=== PATIENT | male | born 1960 | race Caucasian/White ===

== ENCOUNTER 2020-12-28 16:48 | Inpatient (IN) ==
[2020-12-28] MEDS ORDERED: SODIUM CHLORIDE 0.9% 500 ML IV STA (17:05)
--- NOTE | 2020-12-28 17:13 | Emergency Department Note ---
History of Present Illness General Chief complaint: Rectal Bleed Stated complaint: RECTAL BLEED Time Seen by Provider: 12/28/20 16:55 Source: patient Mode of arrival: ambulatory Limitations: no limitations History of Present Illness Provider complaint: GI bleed 10-year-old male who presents to the ED with a chief complaint of rectal bleeding. He had one episode of rectal bleeding that was significant just prior to arrival. He states that he felt like he had to move his bowels and a significant amount of blood came out. The , who reports that she is a nurse, states that it was bright red in color. The patient has a history of rectal cancer that was diagnosed January 2020. He is currently undergoing chemot herapy. His last episode of chemotherapy was last week. Following chemotherapy he had diarrhea for 2 days that resolved. He then states that he did not have a bowel movement since that time. On the way here, his states that he reported some dizziness and lightheadedness. He is followed by Dr. Frazier. His case is nonsurgical, per the patient. The reports metastatic lesions to the lung that are stable. Home Medications Medication Instructions Recorded Confirmed Type tramadol 25 mg PO HS PRN 03/03/20 12/28/20 History acetaminophen [Tylenol] 325 mg PO QID PRN 03/04/20 12/28/20 History fentanyl 12 mcg/hr transdermal 1 patch TD Q72H 03/25/20 12/28/20 History patch gabapentin 300 mg PO TID 12/28/20 12/28/20 History lisinopril 10 mg PO DAILY 12/28/20 12/28/20 History Allergies Allergy/AdvReac Type Severity Reaction Status Date / Time No Known Allergies Allergy Verified 12/28/20 18:40 Past Med/Surg History Medical History (Updated 12/28/20 @ 19:44 by Josué Hunt DO) Adenomatous polyps Dermatitis History of colon cancer diagnosed 01/2020--reason for port insertion Hypertension Tubulovillous adenoma Surgical History History of colonoscopy 2016 - Tubulovillous Adenoma removed 2018 - Tubulovillous Adenoma removed 02/02/20 - Colorectal Adenocarcinoma History of inguinal hernia repair 04/07/2016 right side History of rectal surgery 05/01/2017 - Rectal Tumor Excision Transanal Approach History of wisdom tooth extraction Port-A-Cath in place (03/04/20) Insertion of Mediport Left Subclavian Vein Dr. Chavarria 03/04/20 Family History Mother Heart disease Hypertension Father Heart disease Hemochromatosis Hypertension Brother No problems noted. Sister History of rectal polyps Son No problems noted. Daughter No problems noted. 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 [employer] Feels Safe at Home: Yes Childhood Exposure to Second-Hand Smoke: Yes caffeine: Yes (coffee one cup per day) during the past year weight has: decreased > 10 lbs Dental Care, Regularly: Yes Physical Activity Frequency: 1-2 Times per Week Seatbelt Use: always Sunscreen Use: Yes Assistive Devices: None Review of Systems A total of 10 systems reviewed and were otherwise negative Physical Exam Vital Signs Vital Signs - 24 hr 12/28/20 16:54 12/28/20 17:00 12/28/20 17:18 Temperature 36.8 C Temperature Source Oral Pulse Rate - Lying Pulse Rate - Sitting Pulse Rate - Standing Pulse Rate 109 H 99 H 104 H Pulse Rate from SpO2 Sensor 108 H 99 H Respiratory Rate 33 H 24 16 Respiratory Effort / Characteristics Non-Labored Spontaneous Respiratory Depth Normal Respiratory Pattern Regular Blood Pressure - Lying Blood Pressure - Sitting Blood Pressure- Standing Blood Pressure 165/96 H 149/95 H 149/95 H Blood Pressure Mean 119 113 113 Pulse Oximetry 97 97 99 Oxygen Delivery Method Room Air Sepsis Recent Fever Within 48 Hours No Sepsis New/Unexplained Change in Mental Status No Sepsis Action Taken by Nursing No Action Required 12/28/20 17:30 12/28/20 18:00 12/28/20 18:37 Temperature Temperature Source Pulse Rate - Lying 98 H Pulse Rate - Sitting 103 H Pulse Rate - Standing 98 H Pulse Rate 97 H 101 H Pulse Rate from SpO2 Sensor 100 H 100 H Respiratory Rate 27 H 16 Respiratory Effort / Characteristics Respiratory Depth Respiratory Pattern Blood Pressure - Lying 130/79 Blood Pressure - Sitting 148/88 H Blood Pressure- Standing 141/86 H Blood Pressure 125/82 142/80 H Blood Pressure Mean 96 100 Pulse Oximetry 98 96 Oxygen Delivery Method Sepsis Recent Fever Within 48 Hours Sepsis New/Unexplained Change in Mental Status Sepsis Action Taken by Nursing CONSTITUTIONAL/VITAL SIGNS: Reviewed / noted above. GENERAL: Non-toxic in appearance. INTEGUMENTARY: Warm, dry, and [place]. HEAD: Normocephalic. EYES: without scleral icterus or trauma. ENT/OROPHARYNX: clear and moist. LYMPHADENOPATHY/NECK: Is supple without lymphadenopathy or meningismus. RESPIRATORY: Lungs clear and equal. CARDIOVASCULAR: Regular rate and rhythm. GI/ABDOMEN: Soft and nontender. No organomegaly or pulsatile mass. No rebound or guarding. Normal bowel sounds. There is no active bleeding from the exterior portion of the rectum but there is gross dried blood in that region no obvious rectal masses on external exam. No internal or digital exam was performed. EXTREMITIES: Warm and well perfused. BACK: No CVA tenderness. NEUROLOGICAL: Intact without focal deficits. PSYCHIATRIC: normal affect. MUSCULOSKELETAL: Normally developed with good muscle tone. TRIAGE NURSING DOCUMENTATION REVIEWED. Course Administered Medications Discontinued Medications Sodium Chloride (Nss) 500 mls @ 999 mls/hr IV .Q31M STA Stop: 12/28/20 17:35 Last Infusion: 12/28/20 18:44 Dose: 0 mls/hr Documented by: [id number] Admin: 12/28/20 17:13 Dose: 999 mls/hr Documented by: [id number] Ioversol (Ioversol 100ml) 95 ml IV ONCE ONE Stop: 12/28/20 17:52 Last Admin: 12/28/20 17:52 Dose: 95 ml Documented by: [id number] Medical Decision Making Differential Diagnosis Differential includes anemia, arterial versus venous bleeding, cancer, hypot ension Medical Records Attestation: I reviewed the patient's medical records. Home Medications Current Medication List: was personally reviewed by me Laboratory Data Attestation: I reviewed the patient's lab results. Result diagrams: 12/28/20 17:11 12/28/20 17:11 Lab Results 12/28/20 12/28/20 12/28/20 Range/Units 17:11 17:11 17:11 WBC 2.77 L (4.8-10.8) K/uL RBC 3.65 L (4.7-6.1) M/uL Hgb 11.8 L (14.0-18.0) g/dL Hct 34.0 L (42-52) % MCV 93.2 (80-100) fL MCH 32.3 (25-34) pg MCHC 34.7 (32-36) g/dL RDW Std Deviation 75.6 H (36.4-46.3) fL RDW Coeff of Neema 21.9 H (11.5-14.5) % Plt Count 156 (130-400) K/uL MPV 8.5 (7.4-10.4) fL PT 10.9 (9.0-12.0) Seconds INR 1.1 (0.9-1.1) APTT 27.3 (21.0-31.0) Seconds PTT Ratio 1.0 Sodium (136-145) mmol/L Potassium (3.5-5.1) mmol/L Chloride (98-107) mmol/L Carbon Dioxide (21-32) mmol/L Anion Gap (3-11) BUN (7-18) mg/dl Creatinine (0.6-1.4) mg/dl Est Cr Clr Drug Dosing ml/min Est GFR ( Amer) Est GFR (Non-Af Amer) BUN/Creatinine Ratio (10-20) Glucose (70-99) mg/dl Calcium (8.5-10.1) mg/dl Total Bilirubin (0.2-1) mg/dl AST (15-37) U/L ALT (12-78) U/L Alkaline Phosphatase (45-117) U/L Total Protein (6.4-8.2) gm/dl Albumin (3.4-5.0) gm/dl Globulin (2.5-4.0) gm/dl Albumin/Globulin Ratio (0.9-2) COVID-19 Eval Order SARS-CoV-2 (PCR) (Negative) Influenza Type A (PCR) (Neg) Influenza Type B (PCR) (Neg) RSV (RT-PCR) (Neg) Blood Type B Negative Antibody Screen NEGATIVE 12/28/20 12/28/20 12/28/20 Range/Units 17:11 19:05 19:05 WBC (4.8-10.8) K/uL RBC (4.7-6.1) M/uL Hgb (14.0-18.0) g/dL Hct (42-52) % MCV (80-100) fL MCH (25-34) pg MCHC (32-36) g/dL RDW Std Deviation (36.4-46.3) fL RDW Coeff of Neema (11.5-14.5) % Plt Count (130-400) K/uL MPV (7.4-10.4) fL PT (9.0-12.0) Seconds INR (0.9-1.1) APTT (21.0-31.0) Seconds PTT Ratio Sodium 138 (136-145) mmol/L Potassium 3.8 (3.5-5.1) mmol/L Chloride 106 (98-107) mmol/L Carbon Dioxide 24 (21-32) mmol/L Anion Gap 8.0 (3-11) BUN 19 H (7-18) mg/dl Creatinine 0.61 (0.6-1.4) mg/dl Est Cr Clr Drug Dosing 117.7 ml/min Est GFR ( Amer) 126.7 Est GFR (Non-Af Amer) 109.3 BUN/Creatinine Ratio 30.3 H (10-20) Glucose 131 H (70-99) mg/dl Calcium 9.1 (8.5-10.1) mg/dl Total Bilirubin 0.5 (0.2-1) mg/dl AST 17 (15-37) U/L ALT 29 (12-78) U/L Alkaline Phosphatase 74 (45-117) U/L Total Protein 7.0 (6.4-8.2) gm/dl Albumin 3.2 L (3.4-5.0) gm/dl Globulin 3.8 (2.5-4.0) gm/dl Albumin/Globulin Ratio 0.8 L (0.9-2) COVID-19 Eval Order CovFluRsv at [facility] SARS-CoV-2 (PCR) NEGATIVE (Negative) Influenza Type A (PCR) Negative (Neg) Influenza Type B (PCR) Negative (Neg) RSV (RT-PCR) Negative (Neg) Blood Type Antibody Screen Imaging Data Radiologist's Impression: Abdomen/Pelvis CT 12/28/20 17:[address] WITH IV CONTRAST CT DOSE: 506.99 mGy.cm HISTORY: Acute rectal bleeding. History of rectal carcinoma rectal bleed, recta l cancer TECHNIQUE: Multiaxial CT images of the abdomen and pelvis were performed following the IV administration of 95 cc of Optiray 320, A dose lowering technique was utilized adhering to the principles of ALARA. COMPARISON STUDY: CT abdomen and pelvis 11/23/2020 FINDINGS: Partially imaged catheter within the right atrium. Imaged inferior cardiac chambers are unremarkable. 8 mm solid nodule of the basal right lower lobe on image 67 is unchanged in size. Mild bibasilar atelectasis. There is no pneumatosis or pneumoperitoneum. Mild splenomegaly, 13.5 cm. Pancreas, adrenal glands, gallbladder and liver appear unremarkable. Probable cyst of the interpolar right kidney, 1.3 cm. No hydronephrosis. Urinary bladder is distended measuring up to 16.2 cm. Mild prostamegaly. No aortic aneurysm. Prior right inguinal hernia repair. No adenopathy. Mild wall thickening of the distal esophagus. Duodenal diverticulum. No bowel obstruction. Moderate fecal retention. The appendix is not identified. Circumferential wall thickening of the rectum with progressive perirectal stranding. There is discontinuity involving the 4-6:00 positions of the mid aspect of the posterior rectal wall with extraluminal air and debris noted extending into the perirectal tissues abutting the adjacent pelvic floor musculature and left seminal vesicle overall measuring approximately 3.9 cm in greatest dimension. Tiny adjacent perirectal lymph nodes. No drainable fluid collection. Unremarkable soft tissues. There is no acute fracture. No new suspicious bone lesion. IMPRESSION: 1. Pathologic wall thickening of the rectum redemonstrated compatible with the patient's known rectal carcinoma. There is discontinuity involving the left posterolateral rectal wall with air and debris within the adjacent perirectal tissues suggestive of contained perforation with collection/sinus tract abutting the adjacent left pelvic floor. 2. No bowel obstruction or drainable fluid collection. 3. Moderate fecal retention. 4. Unchanged 8 mm right lower lobe pulmonary nodule. 5. Additional findings as above. ACT 112: Negative or not required by law. The above report was generated using voice recognition software. It may contain grammatical, syntax or spelling errors. Electronically signed by: Emile Garber M.D. 12/28/2020 6:16 PM MDM Narrative This is a 60-year-old male who presents to the ED with a chief complaint of sudden onset of rectal bleeding that just happened before he came in. He reports a significant amount of blood loss. He was feeling a little lightheaded. His vital signs here are stable. His exam does not reveal any external bleeding. A CT scan of the abdomen pelvis was performed. This reveals findings suggestive of a contained rectal perforation. The patient's white blood cell count is 2.77. His hemoglobin is 11.8. This is stable compared to his hemoglobin on the second. The chemistry panel did not show any significant abnormalities. I did speak with Dr. Dueñas, the colorectal surgeon that has seen the patient in the past at [facility] in [place]. He does not feel that the patient requires surgery at this time. He states that the p atient should be given IV antibiotics and monitored. He does not feel that this is an acute perforation. He did recommend monitoring the patient in the hospital for his blood counts and his rectal bleeding. Should he develop any findings to suggest infection, the patient can be transferred otherwise he felt the patient could be discharged on oral antibiotics, such as Augmentin, and he would follow-up with the patient next week. I did talk to Dr. Shea about the patient as well. The patient will be seen by the hospitalist for further evaluation and care. He was given IV Zosyn here which was recommended by the colorectal surgeon from [facility]. He did have less than a teaspoon of marj tional rectal bleeding during his ED stay. Impression & Plan RB (rectal bleeding), Rectal adenocarcinoma, Perforation of rectum Discharge Plan Visit Data Chief Complaint: Rectal Bleed Stated Complaint: RECTAL BLEED ED Provider: Josué Hunt Discharge Problem: RB (rectal bleeding), Rectal adenocarcinoma, Perforation of rectum Patient Disposition: Being Evaluated by Hospitalist Forms Stand Alone Forms: My [employer] Prescriptions Prescriptions: No Action fentanyl 12 mcg/hr patch 72 hour 1 patch TD Q72H RF: 0 tramadol 50 mg Tablet 25 mg PO HS PRN (Reason: Pain) RF: 0 acetaminophen [Tylenol] 325 mg Capsule 325 mg PO QID PRN (Reason: Pain) RF: 0 lisinopril 20 mg Tablet 10 mg PO DAILY RF: 0 gabapentin 300 mg capsule 300 mg PO TID RF: 0 Referrals Referrals: Emelina Mercado PA-C [Primary Care Provider] -
[2020-12-28 17:19] LABS: Hemoglobin 11.8 g/dL (14.0-18.0); Mean Corpuscular Hemoglobin 32.3 pg (25-34); Mean Corpuscular Hgb Conc 34.7 g/dL (32-36); Mean Corpuscular Volume 93.2 fL (80-100); Mean Platelet Volume 8.5 fL (7.4-10.4); Platelet Count 156 K/uL (130-400); RDW Coefficient of Variation 21.9 % (11.5-14.5); RDW Standard Deviation 75.6 fL (36.4-46.3); Red Blood Count 3.65 M/uL (4.7-6.1); White Blood Count 2.77 K/uL (4.8-10.8)
[2020-12-28 17:35] LABS: Albumin Level 3.2 gm/dl (3.4-5.0); BUN Creatinine Ratio 30.3 (10-20); Calcium 9.1 mg/dl (8.5-10.1); Creatinine Clr Calc Pharmacy 117.7 ml/min; Est GFR (African American) 126.7; Est GFR (Non-African American) 109.3; Potassium 3.8 mmol/L (3.5-5.1)
[2020-12-28 17:38] LABS: Albumin Globulin Ratio 0.8 (0.9-2); Bilirubin,Total 0.5 mg/dl (0.2-1); Globulin 3.8 gm/dl (2.5-4.0)
[2020-12-28] MEDS ORDERED: OPTIRAY 320 100ml IV ONE (17:51)
[2020-12-28 17:52] LABS: INR 1.1 (0.9-1.1); Partial Thromboplastin Time 27.3 Seconds (21.0-31.0); Prothrombin Time 10.9 Seconds (9.0-12.0)
--- NOTE | 2020-12-28 18:17 | CT Scan Report ---
ABDOMEN AND PELVIS CT WITH IV CONTRAST CT DOSE: 506.99 mGy.cm HISTORY: Acute rectal bleeding. History of rectal carcinoma rectal bleed, rectal cancer TECHNIQUE: Multiaxial CT images of the abdomen and pelvis were performed following the IV administrat ion of 95 cc of Optiray 320, A dose lowering technique was utilized adhering to the principles of AL DAV. COMPARISON STUDY: CT abdomen and pelvis 11/23/2020 FINDINGS: Partially imaged catheter within the right atrium. Imaged inferior cardiac chambers are unremarkable. 8 mm solid nodule of the basal right lower lobe on image 67 is unchanged in size. Mild bibasilar ate lectasis. There is no pneumatosis or pneumoperitoneum. Mild splenomegaly, 13.5 cm. Pancreas, adrenal glands, gallbladder and liver appear unremarkable. Prob able cyst of the interpolar right kidney, 1.3 cm. No hydronephrosis. Urinary bladder is distended javier suring up to 16.2 cm. Mild prostamegaly. No aortic aneurysm. Prior right inguinal hernia repair. No a denopathy. Mild wall thickening of the distal esophagus. Duodenal diverticulum. No bowel obstruction. Moderate f ecal retention. The appendix is not identified. Circumferential wall thickening of the rectum with pr ogressive perirectal stranding. There is discontinuity involving the 4-6:00 positions of the mid aspe ct of the posterior rectal wall with extraluminal air and debris noted extending into the perirectal tissues abutting the adjacent pelvic floor musculature and left seminal vesicle overall measuring mary roximately 3.9 cm in greatest dimension. Tiny adjacent perirectal lymph nodes. No drainable fluid col lection. Unremarkable soft tissues. There is no acute fracture. No new suspicious bone lesion. IMPRESSION: 1. Pathologic wall thickening of the rectum redemonstrated compatible with the patient's known rectal carcinoma. There is discontinuity involving the left posterolateral rectal wall with air and debris within the adjacent perirectal tissues suggestive of contained perforation with collection/sinus trac t abutting the adjacent left pelvic floor. 2. No bowel obstruction or drainable fluid collection. 3. Moderate fecal retention. 4. Unchanged 8 mm right lower lobe pulmonary nodule. 5. Additional findings as above. ACT 112: Negative or not required by law. The above report was generated using voice recognition software. It may contain grammatical, syntax o r spelling errors. Electronically signed by: Emile Garber M.D. 12/28/2020 6:16 PM
[2020-12-28] MEDS ORDERED: PIPERACILL/TAZOBAC CONSULT ACTIVE PRN ×2 (19:37→22:07)
[2020-12-28] MEDS ORDERED: PIPERACILLIN/TAZOBACTAM 4.5 GM/120 ML BAG IV ONE (19:37)
[2020-12-28 20:06] LABS: Influenza A virus by PCR Negative (Neg); Influenza B virus by PCR Negative (Neg); RSV by PCR Negative (Neg); SARS CoV2 RNA(COVID-19) InHosp NEGATIVE (Negative)
--- NOTE | 2020-12-28 20:30 | History & Physical Report ---
Date of Service December 28, 2020 Assessment & Plan (1) RB (rectal bleeding): 60yo male with history of rectal carcinoma with metastases to lungs presenting with rectal bleed. He is hemodynamically stable, Hgb=11.8 which is similar to prior values. No additional bleeding. -Admit to medical -Continue to monitor CBC -Monitor for additional bleeding -Consider GI consultation Present on Admission?: Yes (2) Perforation of rectum: Patient with history of rectal carcinoma. CT imaging revealed contained perforation. He follows with Colorectal surgery at [facility] as well as Medical Oncology - Dr. Bustamante and Dr. Mims. ER physician discussed CT findings with both Dr. Mims and Dr. Frazier. 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 -Continue Tramadol -Consider Oncology consultation Present on Admission?: Yes (4) Hypertension: Blood pressure stable -Continue Lisinopril 10mg po daily -Continue to monitor F/E/N - LR at 80mL/hr, monitor electrolytes, NPO for now - can advance diet in AM if patient remains stable Ppx - SCDs, no chemoppx in setting of acute bleed Code - Full per discussion with patient Dispo - Admit to medical Present on Admission?: Yes History of Present Illness Chief Complaint: Rectal bleed Primary Care Provider: Emelina Mercado PA-C Kip Morrison is a pleasant 60 you C male with history of metastatic colorectal cancer ([id number]) to the lungs presently on FOLFIRI chemotherapy. Patient was receiving his home infusion today when he had a large episode of bright red blood per rectum. Patient's witnessed the bleed and stated that the entire toilet bowl was filled with a large amount of blood as well as loose stool. EMS was called and the patient was brought to [facility]. Patient denies fevers, chills, abdominal pain. He has occasional nausea without vomiting. No subsequent episodes of diarrhea or rectal bleeding. Patient had diarrhea with a small amount of bleeding during his last chemotherapy infusion 2 weeks ago. Patient has received Covid-19 vaccinations x 2 doses at this time In the ER patient afebrile, HD stable, NAD. No additional complaints at this time. ER Course: Zosyn 4.5gm, NSS Allergies Allergy/AdvReac Type Severity Reaction Status Date / Time No Known Allergies Allergy Verified 12/28/20 18:40 Home Medications Medication Instructions Recorded Confirmed Type tramadol 25 mg PO HS PRN 03/03/20 12/28/20 History acetaminophen [Tylenol] 325 mg PO QID PRN 03/04/20 12/28/20 History fentanyl 12 mcg/hr transdermal 1 patch TD Q72H 03/25/20 12/28/20 History patch gabapentin 300 mg PO TID 12/28/20 12/28/20 History lisinopril 10 mg PO DAILY 12/28/20 12/28/20 History Past Med/Surg History Medical History (Updated 12/28/20 @ 21:40 by Erika Noble DO) Adenomatous polyps Dermatitis History of colon cancer diagnosed 01/2020--reason for port insertion Hypertension Tubulovillous adenoma Surgical History History of colonoscopy 2016 - Tubulovillous Adenoma removed 2018 - Tubulovillous Adenoma removed 02/02/20 - Colorectal Adenocarcinoma History of inguinal hernia repair 04/07/2016 right side History of rectal surgery 05/01/2017 - Rectal Tumor Excision Transanal Approach History of wisdom tooth extraction Port-A-Cath in place (03/04/20) Insertion of Mediport Left Subclavian Vein Dr. Chavarria 03/04/20 Family History Mother Heart disease Hypertension Father Heart disease Hemochromatosis Hypertension Brother No problems noted. Sister History of rectal polyps Son No problems noted. Daughter No problems noted. 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 [employer] Feels Safe at Home: Yes Childhood Exposure to Second-Hand Smoke: Yes caffeine: Yes (coffee one cup per day) during the past year weight has: decreased > 10 lbs Dental Care, Regularly: Yes Physical Activity Frequency: 1-2 Times per Week Seatbelt Use: always Sunscreen Use: Yes Assistive Devices: None Review of Systems Review of Systems: All systems reviewed & are unremarkable except as noted in HPI & below Physical Exam Physical Exam: General: patient resting comfortably, NAD, non-toxic in appearance, AA&O x 4 Skin: warm, dry, intact, no rashes or lesions HEENT: NC/AT, PERRL, EOMI, anicteric sclera, conjunctiva without injection, external ear normal to inspection and nontender, nares patent, moist mucus membranes, dentition intact, no oropharyngeal lesions, neck supple, trachea midline, no LAD, no thyromegaly, no JVD Heart: +S1/S2, regular, no m/r/g, Mediport left chest wall - nontender Lungs: equal air entry bilaterally, no rales/rhonchi/wheezes Abd: +BS, soft, NT/ND, no masses/organomegaly/ascites Ext: warm, 2+ pulses in UE/LE bilaterally, no clubbing/cyanosis or edema Neuro: nonfocal, patient AA&O x 4, speech intact, no facial droop, moving all extremities on command with equal strength 5/5 Results & Data Results & Data ([facility]) Vital Signs (Past 12 Hours) Vital Signs Temp Pulse Resp BP Pulse Ox 12/28/20 18:00 101 H 16 142/80 H 96 12/28/20 17:30 97 H 27 H 125/82 98 12/28/20 17:18 36.8 C 104 H 16 149/95 H 99 12/28/20 17:00 99 H 24 149/95 H 97 12/28/20 16:54 109 H 33 H 165/96 H 97 Laboratory Results Lab Results 12/28/20 12/28/20 12/28/20 Range/Units 17:11 17:11 17:11 WBC 2.77 L (4.8-10.8) K/uL RBC 3.65 L (4.7-6.1) M/uL Hgb 11.8 L (14.0-18.0) g/dL Hct 34.0 L (42-52) % MCV 93.2 (80-100) fL MCH 32.3 (25-34) pg MCHC 34.7 (32-36) g/dL RDW Std Deviation 75.6 H (36.4-46.3) fL RDW Coeff of Neema 21.9 H (11.5-14.5) % Plt Count 156 (130-400) K/uL MPV 8.5 (7.4-10.4) fL PT 10.9 (9.0-12.0) Seconds INR 1.1 (0.9-1.1) APTT 27.3 (21.0-31.0) Seconds PTT Ratio 1.0 Sodium (136-145) mmol/L Potassium (3.5-5.1) mmol/L Chloride (98-107) mmol/L Carbon Dioxide (21-32) mmol/L Anion Gap (3-11) BUN (7-18) mg/dl Creatinine (0.6-1.4) mg/dl Est Cr Clr Drug Dosing ml/min Est GFR ( Amer) Est GFR (Non-Af Amer) BUN/Creatinine Ratio (10-20) Glucose (70-99) mg/dl Calcium (8.5-10.1) mg/dl Total Bilirubin (0.2-1) mg/dl AST (15-37) U/L ALT (12-78) U/L Alkaline Phosphatase (45-117) U/L Total Protein (6.4-8.2) gm/dl Albumin (3.4-5.0) gm/dl Globulin (2.5-4.0) gm/dl Albumin/Globulin Ratio (0.9-2) COVID-19 Eval Order SARS-CoV-2 (PCR) (Negative) Influenza Type A (PCR) (Neg) Influenza Type B (PCR) (Neg) RSV (RT-PCR) (Neg) Blood Type B Negative Antibody Screen NEGATIVE 12/28/20 12/28/20 12/28/20 Range/Units 17:11 19:05 19:05 WBC (4.8-10.8) K/uL RBC (4.7-6.1) M/uL Hgb (14.0-18.0) g/dL Hct (42-52) % MCV (80-100) fL MCH (25-34) pg MCHC (32-36) g/dL RDW Std Deviation (36.4-46.3) fL RDW Coeff of Neema (11.5-14.5) % Plt Count (130-400) K/uL MPV (7.4-10.4) fL PT (9.0-12.0) Seconds INR (0.9-1.1) APTT (21.0-31.0) Seconds PTT Ratio Sodium 138 (136-145) mmol/L Potassium 3.8 (3.5-5.1) mmol/L Chloride 106 (98-107) mmol/L Carbon Dioxide 24 (21-32) mmol/L Anion Gap 8.0 (3-11) BUN 19 H (7-18) mg/dl Creatinine 0.61 (0.6-1.4) mg/dl Est Cr Clr Drug Dosing 117.7 ml/min Est GFR ( Amer) 126.7 Est GFR (Non-Af Amer) 109.3 BUN/Creatinine Ratio 30.3 H (10-20) Glucose 131 H (70-99) mg/dl Calcium 9.1 (8.5-10.1) mg/dl Total Bilirubin 0.5 (0.2-1) mg/dl AST 17 (15-37) U/L ALT 29 (12-78) U/L Alkaline Phosphatase 74 (45-117) U/L Total Protein 7.0 (6.4-8.2) gm/dl Albumin 3.2 L (3.4-5.0) gm/dl Globulin 3.8 (2.5-4.0) gm/dl Albumin/Globulin Ratio 0.8 L (0.9-2) COVID-19 Eval Order CovFluRsv at [facility] SARS-CoV-2 (PCR) NEGATIVE (Negative) Influenza Type A (PCR) Negative (Neg) Influenza Type B (PCR) Negative (Neg) RSV (RT-PCR) Negative (Neg) Blood Type Antibody Screen Diagnostic Findings ABDOMEN AND PELVIS CT WITH IV CONTRAST CT DOSE: 506.99 mGy.cm HISTORY: Acute rectal bleeding. History of rectal carcinoma rectal bleed, rectal cancer TECHNIQUE: Multiaxial CT images of the abdomen and pelvis were performed following the IV administration of 95 cc of Optiray 320, A dose lowering technique was utilized adhering to the principles of ALARA. COMPARISON STUDY: CT abdomen and pelvis 11/23/2020 FINDINGS: Partially imaged catheter within the right atrium. Imaged inferior cardiac chambers are unremarkable. 8 mm solid nodule of the basal right lower lobe on image 67 is unchanged in size. Mild bibasilar atelectasis. There is no pneumatosis or pneumoperitoneum. Mild splenomegaly, 13.5 cm. Pancreas, adrenal glands, gallbladder and liver appear unremarkable. Probable cyst of the interpolar right kidney, 1.3 cm. No hydronephrosis. Urinary bladder is distended measuring up to 16.2 cm. Mild prostamegaly. No aortic aneurysm. Prior right inguinal hernia repair. No adenopathy. Mild wall thickening of the distal esophagus. Duodenal diverticulum. No bowel obstruction. Moderate fecal retention. The appendix is not identified. Circumferential wall thickening of the rectum with progressive perirectal stranding. There is discontinuity involving the 4-6:00 positions of the mid aspect of the posterior rectal wall with extraluminal air and debris noted exte nding into the perirectal tissues abutting the adjacent pelvic floor musculature and left seminal vesicle overall measuring approximately 3.9 cm in greatest dimension. Tiny adjacent perirectal lymph nodes. No drainable fluid collection. Unremarkable soft tissues. There is no acute fracture. No new suspicious bone lesion. IMPRESSION: 1. Pathologic wall thickening of the rectum redemonstrated compatible with the patient's known rectal carcinoma. There is discontinuity involving the left posterolateral rectal wall with air and debris within the adjacent perirectal tissues suggestive of contained perforation with collection/sinus tract abutting the adjacent left pelvic floor. 2. No bowel obstruction or drainable fluid collection. 3. Moderate fecal retention. 4. Unchanged 8 mm right lower lobe pulmonary nodule. 5. Additional findings as above. ACT 112: Negative or not required by law. The above report was generated using voice recognition software. It may contain grammatical, syntax or spelling errors. Electronically signed by: Emile Garber M.D. 12/28/2020 6:16 PM Dictated: 12/28/201804Transcribed: 12/28/201804 ECG Additional Comments: NSR at 96, normal axis, XC=522, QRS=82, GRt=341, no acute ischemic changes Code Status & VTE Plan VTE Prophylaxis Plan VTE Prophylaxis will be ordered: Yes PG Care Time/CCT Total # of Minutes Spent Total Time Spent with Patient: Total time spent is greater than 50% in coordination of care (as documented) at patient's floor/unit and/or counseling patient: Coding Level of Care Code 98489 Initial Inpt Care Lvl 3 Diagnoses RB (rectal bleeding) K62.5 Perforation of rectum K63.1 Rectal adenocarcinoma C20 Hypertension I10 Hypertension type: essential hypertension (1) Hypertension Hypertension type: essential hypertension Qualified Code(s): I10 - Essential (primary) hypertension
[2020-12-28] MEDS ORDERED: traMADol HCL 50 MG TABLET PO PRN (22:07)
[2020-12-28] MEDS ORDERED: LACTATED RINGER'S 1,000 ML IV SCH (22:07)
[2020-12-28] MEDS ORDERED: ACETAMINOPHEN 325 MG TAB PO PRN (22:14)
[2020-12-28] MEDS: GABAPENTIN 300 MG CAP PO SCH (22:30)
[2020-12-28] MEDS ORDERED: fentaNYL 12 MCG/HR TDSY TD SCH (22:30)
[2020-12-29] MEDS ORDERED: HEPARIN 100 UNIT/ML 5ML FLUSH FLUSH PRN (00:29)
[2020-12-29] MEDS: PIPERACILLIN/TAZOBACTAM 3.375 GM in DEXTROSE 5% 100 ML IV SCH ×3 (02:11→19:33)
[2020-12-29 06:29] LABS: Hematocrit (blood only) 30.4 % (42-52); Hemoglobin 10.3 g/dL (14.0-18.0); Lymphocytes # (auto) 0.65 K/uL (1.2-3.4); Lymphocytes % (auto) 32.2 %; Mean Corpuscular Hemoglobin 31.7 pg (25-34); Mean Corpuscular Hgb Conc 33.9 g/dL (32-36); Mean Corpuscular Volume 93.5 fL (80-100); Mean Platelet Volume 8.3 fL (7.4-10.4); Monocytes % (auto) 9.9 %; Neutrophils # (auto) 1.17 K/uL (1.4-6.5); Neutrophils % (auto) 57.9 %; Platelet Count 135 K/uL (130-400); RDW Coefficient of Variation 22.3 % (11.5-14.5); Red Blood Count 3.25 M/uL (4.7-6.1); White Blood Count 2.02 K/uL (4.8-10.8)
[2020-12-29 06:54] LABS: Anisocytosis Present; Toxic Granulation 1+
[2020-12-29 07:08] LABS: BUN Creatinine Ratio 22.6 (10-20); Calcium 8.7 mg/dl (8.5-10.1); Creatinine Clr Calc Pharmacy 121.7 ml/min; Est GFR (African American) 128.4; Est GFR (Non-African American) 110.8; Potassium 3.9 mmol/L (3.5-5.1)
[2020-12-29] MEDS: lisinopril 10 MG TAB PO SCH (09:43)
[2020-12-29] MEDS: GABAPENTIN 300 MG CAP PO SCH ×3 (09:43→21:39)
[2020-12-29] MEDS: CHECK fentaNYL PATCH PLACEMENT SCH ×3 (09:44→23:36)
--- NOTE | 2020-12-29 12:49 | Electrocardiogram Report ---
Test Reason : Blood Pressure : / mmHG Vent. Rate : 096 BPM Atrial Rate : 096 BPM P-R Int : 148 ms QRS Dur : 082 ms QT Int : 358 ms P-R-T Axes : 049 -05 023 degrees QTc Int : 452 ms Normal sinus rhythm Inferior infarct , age undetermined Abnormal ECG When compared with ECG of 01-MAR-2020 15:05, Premature ventricular complexes are no longer Present Inferior infarct is now Present Confirmed by Harris Power ([id number]) on 12/29/2020 12:49:27 PM Referred By: REFERRED SELF Confirmed By:Harris Power
[2020-12-29 16:20] LABS: Hematocrit (blood only) 30.5 % (42-52); Hemoglobin 10.4 g/dL (14.0-18.0)
--- NOTE | 2020-12-29 21:25 | Hospitalist Progress Note ---
Date of Service December 29, 2020 Assessment & Plan (1) RB (rectal bleeding): 60yo male with history of rectal carcinoma with metastases to lungs presenting with rectal bleed. He is hemodynamically stable, Hgb=11.8 which is similar to prior values. No additional bleeding. -Admit to medical -hemoglobin has been stable. -Bleeding appears to have stopped. -Consider GI consultation D/W Emelina Mercado (2) Perforation of rectum: Patient with history of rectal carcinoma. CT imaging revealed contained perforation. He follows with Colorectal surgery at [facility] as well as Medical Oncology - Dr. Bustamante and Dr. Mims. ER physician discussed CT findings with both Dr. Mims and Dr. Frazier. 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 He has no new complaints. Review of Systems Review of Systems: All systems reviewed & are unremarkable except as noted in HPI & below Physical Exam Physical Exam: General: patient resting comfortably, NAD, non-toxic in appearance, AA&O x 4 Skin: warm, dry, intact, no rashes or lesions HEENT: NC/AT, PERRL, EOMI, anicteric sclera, conjunctiva without injection, external ear normal to inspection and nontender, nares patent, moist mucus membranes, dentition intact, no oropharyngeal lesions, neck supple, trachea midline, no LAD, no thyromegaly, no JVD Heart: +S1/S2, regular, no m/r/g, Mediport left chest wall - nontender Lungs: equal air entry bilaterally, no rales/rhonchi/wheezes Abd: +BS, soft, NT/ND, no masses/organomegaly/ascites Ext: warm, 2+ pulses in UE/LE bilaterally, no clubbing/cyanosis or edema Neuro: nonfocal, patient AA&O x 4, speech intact, no facial droop, moving all extremities on command with equal strength 5/5 Results & Data Results & Data ([facility]) Vital Signs (Past 12 Hours) Vital Signs Temp Pulse Pulse Pulse Resp BP BP 12/29/20 19:00 37 C 79 18 109/69 12/29/20 16:48 82 12/29/20 15:00 36.6 C 77 18 115/70 12/29/20 11:55 36.6 C 70 16 110/70 Pulse Ox 12/29/20 19:00 96 12/29/20 16:48 12/29/20 15:00 96 12/29/20 11:55 97 PG Care Time/CCT Total # of Minutes Spent Total Time Spent with Patient: Total time spent is greater than 50% in coordination of care (as documented) at patient's floor/unit and/or counseling patient: Coding Level of Care Code 33842 Subseq Hosp Care Lvl 3 Diagnoses RB (rectal bleeding) K62.5 Perforation of rectum K63.1 Rectal adenocarcinoma C20 Hypertension I10 Hypertension type: essential hypertension Time Spent (min) 35 (1) Hypertension Hypertension type: essential hypertension Qualified Code(s): I10 - Essential (primary) hypertension
[2020-12-30] MEDS: PIPERACILLIN/TAZOBACTAM 3.375 GM in DEXTROSE 5% 100 ML IV SCH ×2 (02:36→10:45)
[2020-12-30] MEDS: lisinopril 10 MG TAB PO SCH (08:06)
[2020-12-30] MEDS: GABAPENTIN 300 MG CAP PO SCH ×2 (08:06→15:01)
[2020-12-30] MEDS: CHECK fentaNYL PATCH PLACEMENT SCH (08:07)
[2020-12-30 10:11] LABS: Hematocrit (blood only) 31.7 % (42-52); Hemoglobin 10.5 g/dL (14.0-18.0); Mean Corpuscular Hemoglobin 31.8 pg (25-34); Mean Corpuscular Hgb Conc 33.1 g/dL (32-36); Mean Corpuscular Volume 96.1 fL (80-100); Mean Platelet Volume 8.4 fL (7.4-10.4); Platelet Count 129 K/uL (130-400); RDW Coefficient of Variation 22.2 % (11.5-14.5); RDW Standard Deviation 78.4 fL (36.4-46.3); White Blood Count 2.42 K/uL (4.8-10.8)
[2020-12-30 10:35] LABS: Anisocytosis Present; Echinocytes 1+; Eosinophils # (auto) 0.02 K/uL (0-0.5); Eosinophils % (auto) 0.8 %; Lymphocytes # (auto) 1.22 K/uL (1.2-3.4); Lymphocytes % (auto) 50.4 %; Monocytes # (auto) 0.04 K/uL (0.11-0.59); Monocytes % (auto) 1.7 %; Neutrophils # (auto) 1.14 K/uL (1.4-6.5); Neutrophils % (auto) 47.1 %; Ovalocytes 1+
[2020-12-30 10:39] LABS: BUN Creatinine Ratio 18.1 (10-20); Calcium 8.7 mg/dl (8.5-10.1); Creatinine Clr Calc Pharmacy 113.9 ml/min; Est GFR (Non-African American) 107.9; Potassium 3.6 mmol/L (3.5-5.1)
--- NOTE | 2020-12-30 12:56 | Discharge Summary ---
Date of Service December 30, 2020 Admission HPI Per Admitting Provider Kip Morrison is a pleasant 60 you C male with history of metastatic colorectal cancer ([id number]) to the lungs presently on FOLFIRI chemotherapy. Patient was receiving his home infusion today when he had a large episode of bright red blood per rectum. Patient's witnessed the bleed and stated that the entire toilet bowl was filled with a large amount of blood as well as loose stool. EMS was called and the patient was brought to [facility]. Patient denies fevers, chills, abdominal pain. He has occasional nausea without vomiting. No subsequent episodes of diarrhea or rectal bleeding. Patient had diarrhea with a small amount of bleeding during his last chemotherapy infusion 2 weeks ago. Patient has received Covid-19 vaccinations x 2 doses at this time In the ER patient afebrile, HD stable, NAD. No additional complaints at this time. ER Course: Zosyn 4.5gm, NSS Principal Diagnosis rectal bleed Discharge Exam Constitutional WD/WN, vitals as above ENMT external ear and nose normal, oropharynx normal Neck normal visual inspection Gastrointestinal (Abdomen) Inspection/Auscultation: abdomen not distended Percussion/Palpation: abdomen soft; abdomen nontender Skin no rashes, warm and dry Neurologic awake Psychiatric A+Ox3, euthymic affect Discharge Data Allergies Allergy/AdvReac Type Severity Reaction Status Date / Time No Known Allergies Allergy Verified 12/28/20 18:40 Consultations 12/28/20 20:12 ED Decision to Admit Stat Ordered Studies 12/28/20 17:05 CT abd pelvis IV con only Stat Hospital Course (1) RB (rectal bleeding): 60yo male with history of rectal carcinoma with metastases to lungs presenting with rectal bleed. He is hemodynamically stable, Hgb=11.8 which is similar to prior values. No additional bleeding. -Admit to medical -hemoglobin has been stable. -Bleeding appears to have stopped. -hemoglobin is stable, will discharge D/W Emelina Mercado (2) Perforation of rectum: Patient with history of rectal carcinoma. CT imaging revealed contained perforation. He follows with Colorectal surgery at [facility] as well as Medical Oncology - Dr. Bustamante and Dr. Mims. ER physician discussed CT findings with both Dr. Mims and Dr. Frazier. -Continue Zosyn while inpatient -Monitored for possible infection -As patient remains stable, will discharge on Augmentin for additional 7 days. 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 (4) Hypertension: Blood pressure stable -Continue Lisinopril 10mg po daily -Continue to monitor F/E/N - LR at 80mL/hr, monitor electrolytes, NPO for now - can advance diet in AM if patient remains stable Ppx - SCDs, no chemoppx in setting of acute bleed Code - Full per discussion with patient Total Time Total Time Spent Total Time Spent (In Minutes): 35 Discharge Plan Discharge Items Patient Disposition: Home - Home Health Services Reason For Visit: RECTAL BLEED Discharge Diagnosis: rectal bleed Activity: Resume your previous activity Non-emergency contact: Primary Care Provider Call non-emergency contact if: you have any medication questions Follow-up/Referrals: Emelina Mercado PA-C [Primary Care Provider] - 01/07/21 1:45 pm () Diet: Regular Addtl Attending Provider Instructions: Will recommend followup with PCP and Hem onc within 1-2 weeks. Pending Studies at Discharge: No Stand-Alone Forms: [employer], Smoking Cessation Medications and DC Order Prescriptions: New amoxicillin-pot clavulanate [Augmentin] 875-125 mg tablet 1 tab PO TID 7 Days Qty: 21 RF: 0 Continued fentanyl 12 mcg/hr patch 72 hour 1 patch TD Q72H RF: 0 tramadol 50 mg Tablet 25 mg PO HS PRN (Reason: Pain) RF: 0 acetaminophen [Tylenol] 325 mg Capsule 325 mg PO QID PRN (Reason: Pain) RF: 0 lisinopril 20 mg Tablet 10 mg PO DAILY RF: 0 gabapentin 300 mg capsule 300 mg PO TID RF: 0 Discharge Orders: Discharge Order (Routine); Ordered 12/30/20 Ordered By: Gildardo Gallegos Admission Data Admit Date/Time: 12/28/20 20:30 Attending Provider: Gildardo Gallegos Admit Provider: Erika Noble Primary Care Provider: Emelina Mercado Other Providers: [facility],Home Healthcare ; Erika Noble Coding Level of Care Code D/C Day Management >30 mins Diagnoses RB (rectal bleeding) K62.5 Perforation of rectum K63.1 Rectal adenocarcinoma C20 Hypertension I10 Hypertension type: essential hypertension Time Spent (min) 35
--- NOTE | 2021-01-06 09:22 | Coding Query ---
CODING QUERY To promote full compliance with coding requirements relating to patient care, provider participation is requested in all cases of observation nurse uncertainty. Please assist us with the question(s) below: Coding Question(s): 1. There is documentation in the record of monitored for possible infection and this is documented under the perforation of rectum diagnosis. Please specify below, in your clinical opinion, regarding possible infection. ( x) Possible infection of the rectum was treated during this admission ( ) Possible infection of Other was treated during this admission: Please Specify ( ) Possible infection of Unspecified site was treated during this admission ( ) Possible infection was Ruled-Out 2. Treatment with Zosyn is documented with discharge on Augmentin under perforation of rectum diagnosis with documentation of monitored for possible infection. Please Specify in your clinical opinion, regarding the diagnosis that was treated with the Zosyn with discharge on Augmentin. ( ) Possible Infection was treated with Zosyn and discharged on Augmentin ( x ) Perforation of Rectum was treated with Zosyn and discharged on Augmentin ( ) Rectal Bleeding was treated with Zosyn and discharged on Augmentin ( ) Rectal Carcinoma was treated with Zosyn and discharged on Augmentin ( ) Other Diagnosis was treated with Zosyn and discharged on Augmentin. Please Specify Physician's Response(s): From CT scan: debris within the adjacent perirectal tissues suggestive of contained perforation with collection/sinus tract abutting the adjacent left pelvic floor. Thank you Sruthi Drew Principal Diagnosis: "that condition established after study, to be chiefly responsible for occasioning the admission of the patient to the hospital for care." Co-Existing Principal Diagnosis: "when two or more diagnoses equally meet the criteria for principal diagnosis as determined by the circumstances of admission, diagnostic work up, and/or therapy provided, and the Alphabetic Index, Tabular List, or another coding guideline does not provide sequencing direction, any one of the diagnoses may be sequenced first." "When the physician has documented what appears to be a current diagnosis in the body of the record, but has not included the diagnosis in the final diagnostic statement, the physician should be asked whether the diagnosis should be added." (Source Coding [facility] 2 QTR90. p3-4) NAOMI
== END 2020-12-30 15:00 | disposition home health service (06) | DRG 393 ==
LOC: ED 16:48 → 2W 20:30 → SUATTDRO 20:30 → 2W 22:03